=== PATIENT | female | born 1970 | race Caucasian/White ===

== ENCOUNTER 2016-11-08 08:49 | Outpatient (CLI) | payer BC ==
[2016-11-08 09:14] LABS: #Basophils 0.1 thou/uL (0.0-0.2); #Eosinphils 0.3 thou/uL (0.0-0.7); #Lymphocytes 1.9 thou/uL (1.20-3.40); #Monocytes 0.5 thou/uL (0.11-0.59); #Neutrophils 6.2 thou/uL (1.40-6.50); %Basophils 0.9 % (0.0-1.0); %Eosinophils 3.1 % (0.0-10.0); %Lymphocytes 20.9 % (21.0-51.0); %Monocytes 5.9 % (0.0-10.0); %Neutrophils 69.2 % (42.0-75.0); Hemoglobin 15.2 g/dL (12.0-16.0); Mean Corpuscular HGB CONC 33.5 g/dL (32.0-36.0); Mean Corpuscular Hemoglobin 32.5 pg (27.0-31.0); Mean Corpuscular Volume 96.9 fl (81.0-99.0); Mean Platelet Volume 8.5 fL (7.4-10.4); Platelet Count 283 thou/uL (130-400); RBC Distribution Width 11.6 % (11.5-14.5); Red Blood Cell (RBC) Count 4.68 mill/uL (4.20-5.40); White Blood Cell (WBC) Count 8.9 thou/uL (4.8-10.8)
[2016-11-08 09:27] LABS: ALT (SGPT) 9 U/L (0-55); AST (SGOT) 14 U/L (5-34); Albumin 4.3 g/dL (3.5-5.0); Alkaline Phosphatase 64 U/L (40-150); Anion Gap 11 mmol/L (10-20); BUN (Urea Nitrogen) 13 mg/dL (7.0-18.7); Bilirubin, Total 0.3 mg/dL (0.2-1.2); Calc. Creatinine Clearance 0 mL/min (70-130); Calcium 9.1 mg/dL (7.8-10.44); Carbon Dioxide 24 mmol/L (22-29); Cardiac Risk 3.8 (Less than 4.5); Chloride 106 mmol/L (98-107); Cholesterol 188 mg/dL (< 200 Desired); Estimated GFR-MDRD 81; Globulin 2.9 g/dL (2.4-3.5); Glucose 99 mg/dL (70-105); HDL Cholesterol 49 mg/dL (>60 Neg Risk); LDL Cholesterol, Calculated 129 mg/dL; Potassium 4.2 mmol/L (3.5-5.1); Protein, Total 7.2 g/dL (6.0-8.3); Sodium 137 mmol/L (136-145); Triglycerides 52 mg/dL (Less than 150)
== END 2016-11-08 08:50 | disposition home or self-care (01) ==
LOC: MADLABBHPM 08:49
PROVIDERS: ATTEND Family Medicine
DX: Z00.00 Encounter for general adult medical examination without abnormal findings (principal)
CPT/HCPCS: 36415; 80053; 80061; 84443; 85025

== ENCOUNTER 2017-10-29 13:05 | Outpatient (CLI) | payer BC, OTHER ==
--- NOTE | 2017-10-29 13:33 | RAD ---
CHEST PA AND LATERAL: Date: 10/29/17 HISTORY: 47-year-old female with history of positive TB skin test, screening. COMPARISON: 06/15/10. FINDINGS: Heart size is normal. The lungs are clear. No pneumonia, edema, pleural effusion, or other acute proc ess. IMPRESSION: No acute intrathoracic disease. No evidence for active TB. POS: [facility]
[2017-10-29 23:24] LABS: Hep B Surf AB Non-Reactive (NonReactive)
[2017-11-01 07:28] LABS: Varicella Zoster IgG ABS 1443 index (Immune >165)
[2017-11-01 11:25] LABS: Measles (Rubeola) IgG AB Greater than 300.0 AU/mL (Immune >29.9); Mumps IgG ABS Less than 9.0 AU/mL (Immune >10.9); Rubella Virus IgG 2.77 index (Immune >0.99)
== END 2017-10-29 13:06 | disposition home or self-care (01) ==
LOC: MADLABBHPM 13:05
PROVIDERS: ATTEND Family Medicine
DX: Z11.1 Encounter for screening for respiratory tuberculosis (principal); Z11.59 Encounter for screening for other viral diseases
CPT/HCPCS: 71046; 86706; 86735; 86762; 86765; 86787

== ENCOUNTER 2020-03-15 10:31 | Outpatient (CLI) | payer BC ==
--- NOTE | 2020-03-15 10:57 | RAD ---
XR Chest Pa Lat STANDARD HISTORY: Possible exposure to TB COMPARISON: 10/29/2017 FINDINGS: The heart size is normal. The lungs are well expanded without focal areas of consolidation, pneumothorax or pleural effusions. IMPRESSION: No radiographic evidence of acute cardiopulmonary process. No evidence of active pulmonar y tuberculosis.
== END 2020-03-15 10:32 | disposition home or self-care (01) ==
LOC: MADRAD 10:31
PROVIDERS: ATTEND Family Medicine
DX: Z11.1 Encounter for screening for respiratory tuberculosis (principal)
CPT/HCPCS: 71046